=== PATIENT | female | born 1985 ===

== ENCOUNTER 2018-01-08 10:50 | Outpatient (CLI) | payer OTHER | END 2018-01-08 10:53 | disposition home or self-care (01) | LOC: SONOGRAMA 10:50 | DX: Z34.82 Encounter for supervision of other normal pregnancy, second trimester (principal) ==

== ENCOUNTER 2018-05-25 08:00 | Inpatient (IN) | payer OTHER ==
[~2018-05-25] VITALS: Ht 157.5 cm; Wt 58.1 kg
[2018-05-25] MEDS ORDERED: PRENAISSANCE C1 EACH PO (09:10)
== END 2018-06-04 13:51 | disposition home or self-care (01) | DRG 785 ==
LOC: O/R 06-01 06:00 → OB/GYN 06-01 08:00
PROVIDERS: ADMIT Specialist
PROC: 0UL70ZZ Occlusion of Bilateral Fallopian Tubes, Open Approach (ICD-10-PCS; 2018-06-01)
PROC: 4A1HXCZ Monitoring of Products of Conception, Cardiac Rate, External Approach (ICD-10-PCS; 2018-06-01)
PROC: 10D00Z1 Extraction of Products of Conception, Low, Open Approach (ICD-10-PCS; principal; 2018-06-01 08:15)
DX: O34.211 Maternal care for low transverse scar from previous cesarean delivery (principal); O75.82 Onset (spontaneous) of labor after 37 completed weeks of gestation but before 39 completed weeks gestation, with delivery by (planned) cesarean section; Z3A.38 38 weeks gestation of pregnancy; Z37.0 Single live birth; Z30.2 Encounter for sterilization